=== PATIENT | female | born 2000 | race African-American/Black ===

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

== ENCOUNTER 2023-01-29 01:27 | Emergency (ER) | payer OTHER ==
[2023-01-29] MEDS ORDERED: ONDANSETRON 4 MG/2 ML VIAL ONE (02:02)
[2023-01-29 02:39] LABS: Absolute Lymphocytes (CBC) 0.5 K/uL (0.7-4.9); Hematocrit 40.4 % (36.0-45.0); Lymphocytes % 8.1 % (15.3-44.8); MCV 90.1 fL (80-100); MPV 11.5 fL (7.6-11.3); RBC Red Blood Cell Count 4.48 M/uL (3.86-4.86)
[2023-01-29 02:41] LABS: Specific Gravity 1.037 (1.005-1.030)
[2023-01-29 02:42] LABS: Specific Gravity > 1.030 (1.005-1.030); Urine Bacteria None Seen /HPF (<20); Urine Bilirubin NEGATIVE (Negative); Urine Blood Negative (Negative); Urine Clarity Clear (Clear); Urine Color Yellow (Yellow); Urine Glucose NEGATIVE (Negative); Urine Mucus 1+ /HPF (None Seen); Urine Protein 1+ (Negative); Urine RBC <5 /HPF (None Seen); Urine Urobilinogen 1+ (Normal); Urine pH 6.5 (5.0-7.0)
[2023-01-29 02:49] LABS: Albumin 4.3 g/dL (3.4-5.0); Bilirubin Total 0.5 mg/dL (0.2-1.0); Potassium 3.6 mEq/L (3.5-5.1); Protein, Total 8.1 g/dL (6.4-8.2)
--- NOTE | 2023-01-29 03:56 | EDPHYS ---
Physician Documentation [facility] Name: Isis Castaneda Age: 22 yrs Sex: Female : 2000 Arrival Date: 01/29/2023 Time: 01:27 Bed 7 Private MD: ED Physician Marv Briones HPI: 01/29 02:00 This 22 yrs old Black Female presents to ER via Ambulatory with complaints of Headache, rn Abdominal Pain. 02:00 The patient presents with abdominal pain in the epigastric area. Onset: The rn symptoms/episode began/occurred today. The symptoms do not radiate. Associated signs and symptoms: Pertinent positives: nausea and vomiting, headache, Pertinent negatives: blood in stools, chest pain, fever, shortness of breath, vomiting blood. The symptoms are described as achy, crampy. Modifying factors: The symptoms are alleviated by nothing, the symptoms are aggravated by vomiting. Severity of pain: At its worst the pain was mild in the emergency department the pain is unchanged. The patient has not experienced similar symptoms in the past. The patient has not recently seen a physician. Pt reports not sure if ate something bad but meal earlier today smelled funny. Also, father with 'stomach bug". No fever. No cough/congestion/diarrhea. + upper abd pain. No trauma. . 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 - Social history:: Smoking status: Patient denies any tobacco usage or history of. Patient/guardian denies using alcohol, street drugs. - Family history:: not pertinent. - Hospitalizations: : No recent hospitalization is reported. ROS: 02:00 Constitutional: Negative for fever, chills, and weight loss, Cardiovascular: Negative rn for chest pain, palpitations, and edema, Respiratory: Negative for shortness of breath, cough, wheezing, and pleuritic chest pain, Abdomen/GI: Negative for diarrhea, and constipation, Back: Negative for injury and pain, MS/Extremity: Negative for injury and deformity, Skin: Negative for injury, rash, and discoloration, Neuro: Negative for weakness, numbness, tingling, and seizure. Exam: 02:00 Constitutional: This is a well developed, well nourished patient who is awake, alert, rn and in no acute distress. Ambulatory to room without assistance. Head/Face: Normocephalic, atraumatic. Cardiovascular: Regular rate and rhythm. No pulse deficits. Respiratory: No increased work of breathing, no retractions or nasal flaring. Abdomen/GI: soft, mild epigastric tenderness, no rebound, neg ahuja Skin: Warm, dry MS/ Extremity: Pulses equal, no cyanosis. Neuro: Awake and alert, GCS 15, oriented to person, place, time, and situation. Motor strength 5/5 in all extremities. Normal gait. Vital Signs: 01:48 BP 135 / 80; Pulse 97; Resp 18; Temp 99.5; Pulse Ox 100% on R/A; Weight 87.09 kg; pf1 Height 5 ft. 4 in. ; Pain 4/10; 02:30 BP 130 / 86; Pulse 67; Resp 15 S; Pulse Ox 100% on R/A; ha1 03:32 BP 132 / 82; Pulse 65; Resp 16 S; Pulse Ox 100% on R/A; ha1 04:15 BP 119 / 81; Pulse 84; Resp 19; Pulse Ox 100% on R/A; kd3 01:48 Body Mass Index 32.96 (87.09 kg, 162.56 cm) pf1 01:48 Pain Scale: Adult pf1 MDM: 01:33 Patient medically screened. rn 03:54 Differential diagnosis: cholecystitis, Cholelithiasis, gastritis, gastroesophageal rn reflux disease, non-specific abd pain, pancreatitis, Peptic Ulcer Disease, urinary tract infection. Data reviewed: vital signs, nurses notes, lab test result(s), radiologic studies, ultrasound, and as a result, I will discharge patient. Counseling: I had a detailed discussion with the patient and/or guardian regarding: the historical points, exam findings, and any diagnostic results supporting the discharge/admit diagnosis, lab results, radiology results, the need for outpatient follow up, to return to the emergency department if symptoms worsen or persist or if there are any questions or concerns that arise at home. Response to treatment: the patient's symptoms have markedly improved after treatment, and as a result, I will discharge patient. Special discussion: Based on the patient's Hx, exam, and Dx evaluation, there is no indication for emergent surgery or inpatient Tx. It is understood by the patient/guardian that if the Sx's persist or worsen they need to return immediately for re-evaluation. I discussed with the patient/guardian in detail that at this point there is no indication for admission to the hospital. It is understood, however, that if the symptoms persist or worsen the patient needs to return immediately for re-evaluation. 03:56 ED course: Normal WBC, neg ultrasound, stable vitals, no lower abd tenderness or pain, rn no indication for emergent CT at this point. Will dc home with prn zofran and return precautions given/understood. . 01/29 01:53 Order name: Flu; Complete Time: 03:30 01/29 01:53 Order name: Strep rn 01/29 01:53 Order name: CBC with Diff; Complete Time: 02:58 01/29 01:53 Order name: CMP; Complete Time: 02:58 01/29 01:53 Order name: Lipase; Complete Time: 02:58 01/29 01:53 Order name: Test, Urine; Complete Time: 02:58 01/29 01:53 Order name: Urinalysis w/ reflexes; Complete Time: 02:58 01/29 03:18 Order name: Throat Culture [facility] 01/29 01:53 Order name: US Abdomen Limited 01/29 01:53 Order name: IV Saline Lock; Complete Time: 02:08 rn 01/29 01:53 Order name: Labs collected and sent; Complete Time: 02:08 rn Administered Medications: 02:05 Drug: Ondansetron IVP 4 mg Route: IVP; Site: right antecubital; pf1 04:16 Follow up: Response: No adverse reaction kd3 Disposition Summary: 01/29/23 03:55 Discharge Ordered Location: Home rn Problem: new rn Symptoms: have improved rn Condition: Stable rn Diagnosis - Abdominal pain, unspecified rn - Nausea with vomiting, unspecified rn Followup: rn - With: Private Physician - When: As needed - Reason: Recheck today's complaints, Re-evaluation by your physician Discharge Instructions: - Discharge Summary Sheet rn - Abdominal Pain, Adult rn - Nausea and Vomiting, Adult rn Forms: - Medication Reconciliation Form rn - Thank You Letter rn - 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
--- NOTE | 2023-01-29 03:56 | ER ---
Nurse's Notes [facility] Name: Isis Castaneda Age: 22 yrs Sex: Female : 2000 Arrival Date: 01/29/2023 Time: 01:27 Bed 7 Private MD: Diagnosis: Abdominal pain, unspecified;Nausea with vomiting, unspecified Presentation: 01/29 01:48 Chief complaint: Patient states: upper abdominal pain of 4 with nausea and vomiting x pf1 1,onset 1700 yesterday with frontal headache pain of 4,onset 1700 yesterday. Coronavirus screen: Vaccine status: Patient reports receiving the 2nd dose of the covid vaccine. [place] Client denies travel out of the [place] in the last 14 days. Client presents with at least one sign or symptom that may indicate coronavirus-19. Ebola Screen: Patient negative for fever greater than or equal to 101.5 degrees Fahrenheit, and additional compatible Ebola Virus Disease symptoms. Initial Sepsis Screen: Does the patient meet any 2 criteria? No. Patient's initial sepsis screen is negative. Does the patient have a suspected source of infection? No. Patient's initial sepsis screen is negative. Risk Assessment: Do you want to hurt yourself or someone else? Patient reports no desire to harm self or others. 01:48 Method Of Arrival: Ambulatory pf1 01:48 Acuity: ADDISON 3 pf1 04:16 Onset of symptoms was January 29, 2023. kd3 Triage Assessment: 04:15 Headache History: The patient has had previous headaches. General: Appears in no kd3 apparent distress. Behavior is calm, cooperative. Pain: Pain began gradually, Also complains of nausea. Pain: Complains of pain in headache. 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 - Social history:: Smoking status: Patient denies any tobacco usage or history of. Patient/guardian denies using alcohol, street drugs. - Family history:: not pertinent. - Hospitalizations: : No recent hospitalization is reported. Screenin:13 [facility] ED Fall Risk Assessment (Adult) History of falling in the last 3 months, pf1 including since admission No falls in past 3 months (0 pts) Confusion or Disorientation No (0 pts) Intoxicated or Sedated No (0 pts) Impaired Gait No (0 pts) Mobility Assist Device Used No (0 pt) Altered Elimination No (0 pt) Score/Fall Risk Level 0 - 2 = Low Risk Oriented to surroundings, Maintained a safe environment, Educated pt \T\ family on fall prevention, incl call for assistance when getting out of bed, Assessed \T\ reinforced patient's understanding of fall precautions, Provided non-skid footwear, Hourly rounding (assess needs \T\ fall precautionary measures) done, Used ambulatory aids as needed (educated on \T\ assisted with), Used gait belt as appropriate. Abuse screen: Denies threats or abuse. Nutritional screening: No deficits noted. Tuberculosis screening: No symptoms or risk factors identified. Assessment: 02:11 General: Appears in no apparent distress. comfortable, well groomed, well developed, pf1 Behavior is calm, cooperative, appropriate for age, quiet. Pain: Complains of pain in frontal headache with upper abdominal pain Pain currently is 4 out of 10 on a pain scale. Neuro: Level of Consciousness is awake, alert, obeys commands, Oriented to person, place, time, situation, Reports headache frontal area. Cardiovascular: No deficits noted. Capillary refill < 3 seconds Patient's skin is warm and dry. Respiratory: No deficits noted. Airway is patent Respiratory effort is even, unlabored, Respiratory pattern is regular, symmetrical. GI: Abdomen is round non-distended, Bowel sounds present X 4 quads. Reports upper abdominal pain, nausea, vomiting, since 1700 yesterday. : No deficits noted. No signs and/or symptoms were reported regarding the genitourinary system. EENT: No deficits noted. No signs and/or symptoms were reported regarding the EENT system. Derm: No deficits noted. No signs and/or symptoms reported regarding the dermatologic system. Musculoskeletal: No deficits noted. No signs and/or symptoms reported regarding the musculoskeletal system. 02:38 Reassessment: Patient and/or family updated on plan of care and expected duration. Pain ha1 level reassessed. Patient is alert, oriented x 3, equal unlabored respirations, skin warm/dry/pink. pain 2/10 Patient states feeling better. 03:33 Reassessment: Patient and/or family updated on plan of care and expected duration. Pain ha1 level reassessed. Patient is alert, oriented x 3, equal unlabored respirations, skin warm/dry/pink. Patient denies pain at this time. Vital Signs: 01:48 BP 135 / 80; Pulse 97; Resp 18; Temp 99.5; Pulse Ox 100% on R/A; Weight 87.09 kg; pf1 Height 5 ft. 4 in. ; Pain 4/10; 02:30 BP 130 / 86; Pulse 67; Resp 15 S; Pulse Ox 100% on R/A; ha1 03:32 BP 132 / 82; Pulse 65; Resp 16 S; Pulse Ox 100% on R/A; ha1 04:15 BP 119 / 81; Pulse 84; Resp 19; Pulse Ox 100% on R/A; kd3 01:48 Body Mass Index 32.96 (87.09 kg, 162.56 cm) pf1 01:48 Pain Scale: Adult pf1 ED Course: 01:30 Patient arrived in ED. [id number] 01:33 Marv Briones MD is Attending Physician. rn 01:38 Arm band placed on right wrist. ha1 01:50 Triage completed. pf1 01:54 Karlie Patterson, RN is Primary Nurse. kd3 02:00 No provider procedures requiring assistance completed. Inserted saline lock: 20 gauge pf1 in right antecubital area, using aseptic technique. Blood collected. 02:08 Test, Urine Sent. pf1 02:08 Urinalysis w/ reflexes Sent. pf1 02:08 CBC with Diff Sent. pf1 02:08 CMP Sent. pf1 02:08 Lipase Sent. pf1 02:08 Strep Sent. pf1 02:08 Flu Sent. pf1 02:14 Allergy band placed. Placed in gown. Bed in low position. Call light in reach. pf1 02:37 US Abdomen Limited In Process Unspecified. EDMS 04:16 IV discontinued, intact, bleeding controlled, No redness/swelling at site. Pressure kd3 dressing applied. Administered Medications: 02:05 Drug: Ondansetron IVP 4 mg Route: IVP; Site: right antecubital; pf1 04:16 Follow up: Response: No adverse reaction kd3 Medication: 04:16 VIS not applicable for this client. kd3 Outcome: 03:55 Discharge ordered by . rn 04:16 Discharged to home ambulatory. kd3 04:16 Condition: stable 04:16 Discharge instructions given to patient, Instructed on discharge instructions, follow up and referral plans. medication usage, Demonstrated understanding of instructions, follow-up care, medications, Prescriptions given X 1. 04:16 Patient left the ED. kd3 Signatures: Dispatcher [employer] EDMS Marv Briones MD MD rn Jeffries, Jennifer [id number] Karlie Patterson RN RN kd3 Jeimy Sheehan RN RN ha1 Adrienne najera RN RN pf1
[2023-01-29 04:39] VITALS: TEMP 99.5; O2SAT 100
[2023-01-29 04:45] VITALS: BP 119/81
--- NOTE | 2023-02-01 13:35 | RAD REPORT ---
EXAM DESCRIPTION: US - Abdomen Exam Limited - 01/29/2023 2:36 am CLINICAL HISTORY: 22 years, Female, ABD PAIN COMPARISON: None. TECHNIQUE: Utilizing a curved array transducer, real-time ultrasound evaluation of the abdominal vis cera was performed. Color Doppler imaging was used to assess vascular flow. FINDINGS: The visualized portions of the liver demonstrate to be within normal limits. Visualized portions of the gallbladder demonstrate to be within normal limits. No gallbladder stone s were seen. No pericholecystic fluid and or wall thickening was identified. The visualized porti ons of the common bile duct measures 3 mm at the level of the proximal intrahepatic portion. No signi ficant intrahepatic biliary duct dilatation within the visualized portions of the liver. IMPRESSION: No gross abnormalities visualized within the gallbladder. Electronically signed by: Merrick Harkins MD 01/29/2023 3:03 AM CDT Due to temporary technical issues with the PACS/Fluency reporting system, reports are being signed by the in house radiologist without review as a courtesy to ensure prompt reporting. The interpreting r adiologist is fully responsible for the content of the report.
== END 2023-01-29 04:16 | disposition home or self-care (01) ==
LOC: ER 01:27
DX: R10.13 Epigastric pain (principal); R11.2 Nausea with vomiting, unspecified
CPT/HCPCS: 87070; 85025; 81001; 36415; 81025; 87081; 83690; 80053; 87804 ×2; 76705; 96374; 99284; J2405